=== PATIENT | female | born 1960 | race Caucasian/White ===

== ENCOUNTER 2016-07-02 23:39 | Inpatient (IN) | payer BC ==
--- NOTE | 2016-07-02 23:59 | ED ---
General Adult HPI - General Chief complaint: Chest Pain Stated complaint: CHest Pain/Jaw Pain/ Time Seen by Provider: 07/02/16 23:48 Source: patient, RN notes reviewed, old records reviewed Mode of arrival: wheelchair Limitations: no limitations - History of Present Illness Initial comments: This is a 56-year-old female here with chest pain, crushing anterior chest pain rating left jaw left arm, patient has a history of smoking no prior history of heart disease no high blood pressure [place] [facility] of diabetes. A third about 2 hours prior to arrival, patient tried to it bleeding without pizza that she ate tonight but the symptoms persisted with increasing shortness of breath. No fever cough or congestion no travel history. - Related Data Home Medications Medication Instructions Recorded Confirmed Aspirin 81 mg PO DAILY 07/02/16 07/02/16 Garlic 1 tab PO DAILY 07/02/16 07/02/16 Multivitamins, Thera [Multivitamin 1 tab PO DAILY 07/02/16 07/02/16 (formulary)] Allergies Allergy/AdvReac Type Severity Reaction Status Date / Time No Known Allergies Allergy Unverified 07/02/16 23:53 Review of Systems ROS Statement: Those systems with pertinent positive or pertinent negative responses have been documented in the HPI. ROS Other: All systems not noted in ROS Statement are negative. Past Medical History Past Medical History: No Reported History History of Any Multi-Drug Resistant Organisms: None Reported Past Surgical History: Hysterectomy, Tonsillectomy Past Psychological History: No Psychological Hx Reported Smoking Status: Current every day smoker Past Alcohol Use History: None Reported Past Drug Use History: None Reported General Exam Limitations: no limitations General appearance: alert, in no apparent distress, anxious Head exam: Present: atraumatic, normocephalic, normal inspection Eye exam: Present: normal appearance, PERRL, EOMI. Absent: scleral icterus, conjunctival injection, periorbital swelling ENT exam: Present: normal exam, mucous membranes moist Neck exam: Present: normal inspection. Absent: tenderness, meningismus, lymphadenopathy Respiratory exam: Present: normal lung sounds bilaterally. Absent: respiratory distress, wheezes, rales, rhonchi, stridor Cardiovascular Exam: Present: regular rate, normal rhythm, normal heart sounds. Absent: systolic murmur, diastolic murmur, rubs, gallop, clicks GI/Abdominal exam: Present: soft, normal bowel sounds. Absent: distended, tenderness, guarding, rebound, rigid Extremities exam: Present: normal inspection, full ROM, normal capillary refill. Absent: tenderness, pedal edema, joint swelling, calf tenderness Back exam: Present: normal inspection Neurological exam: Present: alert, oriented X3, CN II-XII intact Psychiatric exam: Present: normal affect, normal mood Skin exam: Present: warm, dry, intact, normal color. Absent: rash Course Vital Signs 07/02/16 23:52 Temperature 98.4 F Pulse Rate 78 Respiratory 22 Rate Blood Pressure 132/90 O2 Sat by Pulse 96 Oximetry EKG Findings - EKG Comments: EKG Findings:: EKG shows normal sinus rate of 66, ME 162, QRS 80, QTC 431. Repeat. EKG shows sinus rhythm rate of at 76, ME 160, QRS 80, QTC 454. Repeat. EKG shows normal sinus rhythm rate of 82, ME 176, QRS 80, QTC 462 Medical Decision Making - Lab Data Result diagrams: 07/03/16 00:20 Lab Results 07/03/16 07/03/16 Range/Units 00:20 00:20 WBC 9.9 (3.8-10.6) k/uL RBC 4.43 (3.80-5.40) m/uL Hgb 13.9 (11.4-16.0) gm/dL Hct 41.7 (34.0-46.0) % MCV 94.2 (80.0-100.0) fL MCH 31.4 (25.0-35.0) pg MCHC 33.4 (31.0-37.0) g/dL RDW 12.9 (11.5-15.5) % Plt Count 305 (150-450) k/uL Neutrophils % 60 % Lymphocytes % 27 % Monocytes % 7 % Eosinophils % 3 % Basophils % 1 % Neutrophils # 5.9 (1.3-7.7) k/uL Lymphocytes # 2.7 (1.0-4.8) k/uL Monocytes # 0.7 (0-1.0) k/uL Eosinophils # 0.3 (0-0.7) k/uL Basophils # 0.1 (0-0.2) k/uL PT 10.5 (9.0-12.0) sec INR 1.0 (<1.1) APTT 25.0 (22.0-30.0) sec D-Dimer 0.44 (<0.60) mg/L FEU Critical Care Time Critical Care Time: Yes Total Critical Care Time: 31 Disposition Clinical Impression: Chest pain Disposition: ADMITTED IP TO THIS HOSP Condition: Undetermined Referrals: Elza Ferguson DO [Primary Care Provider] - 1-2 days
[2016-07-03] MEDS ORDERED: ASPIRIN 81 MG CHEW PO STA ×2 (00:09→12:32)
[2016-07-03] MEDS ORDERED: HEPARIN SODIUM,PORCINE 5,000 UNIT/ML 1 ML VIAL IV ONE ×2 (00:09→09:21)
[2016-07-03] MEDS ORDERED: NITROGLYCERIN SL TABS 0.4 MG TAB SUBLINGUAL PRN ×2 (00:09→12:27)
[2016-07-03] MEDS ORDERED: HEPARIN SODIUM,PORCINE/D5W PMX 25,000 UNIT in DEXTROSE/WATER 1 500ML.BAG IV SCH ×2 (00:15→09:30)
[2016-07-03 00:39] LABS: Basophils # (A) 0.1 k/uL (0-0.2); Basophils % (A) 1 %; CH 31.9; Eosinophils # (A) 0.3 k/uL (0-0.7); Eosinophils % (A) 3 %; HCT 41.7 % (34.0-46.0); HDW 2.14; HGB 13.9 gm/dL (11.4-16.0); Luc # (Auto) 0.27; Luc % (Auto) 3; Lymphocytes # (A) 2.7 k/uL (1.0-4.8); Lymphocytes % (A) 27 %; MCH 31.4 pg (25.0-35.0); MCHC 33.4 g/dL (31.0-37.0); MCV 94.2 fL (80.0-100.0); Mean Platelet Volume 7.2; Monocytes # (A) 0.7 k/uL (0-1.0); Monocytes % (A) 7 %; Neutrophils # (A) 5.9 k/uL (1.3-7.7); Neutrophils % (A) 60 %; RBC 4.43 m/uL (3.80-5.40); RDW 12.9 % (11.5-15.5); WBC 9.9 k/uL (3.8-10.6); WBC (Perox) 9.95
[2016-07-03 00:54] LABS: ALT 50 U/L (9-52); AST 98 U/L (14-36); Alkaline Phosphatase 90 U/L (38-126); Anion Gap 12 mmol/L; Blood Urea Nitrogen 23 mg/dL (7-17); Carbon Dioxide 27 mmol/L (22-30); Chloride 104 mmol/L (98-107); Glucose 121 mg/dL (74-99); Non-African American GFR(MDRD) >60 (>60 ml/min/1.73 sqM); Potassium 3.9 mmol/L (3.5-5.1); Sodium 143 mmol/L (137-145); Total Bilirubin 0.3 mg/dL (0.2-1.3); Total Protein 6.9 g/dL (6.3-8.2)
[2016-07-03 00:55] LABS: Prothrombin Time 10.5 sec (9.0-12.0)
--- NOTE | 2016-07-03 01:06 | XR ---
EXAM: XR Chest, 2 Views. CLINICAL HISTORY: Reason: Chest Pain TECHNIQUE: Frontal and lateral views of the chest. COMPARISON: No relevant prior studies available. FINDINGS: The lungs are hyperexpanded with flattening of the diaphragm, consistent with emphysema. There is no consolidation or vascular congestion. No pleural effusion or pneumothorax. Mild apical pleural/parenchymal scarring. Thoracic spondylosis. IMPRESSION: Pulmonary hyperexpansion suggesting emphysema. No consolidation
[2016-07-03] MEDS: SODIUM CHLORIDE 0.9% 1,000 ML IV SCH ×2 (01:28→17:36)
[2016-07-03 01:30] LABS: Creatine Kinase MB 52.5 ng/mL (0.0-2.4); Troponin I 38.6 ng/mL (0.000-0.034)
--- NOTE | 2016-07-03 01:45 | ED ---
Medical Decision Making - Medical Decision Making 56 female deer with chest pain. [address] elevation, patient is without chest pain currently states it has subsided. Spoke with cardiology regarding this and severely elevated troponin, there aware, will admit for anticoagulation echocardiograph in the morning and continued telemetry - Lab Data Result diagrams: 07/03/16 00:20 07/03/16 00:20 - Radiology Data Radiology results: report reviewed, image reviewed Disposition Clinical Impression: Chest pain, NSTEMI (non-ST elevated myocardial infarction) Disposition: ADMITTED IP TO THIS HOSP Condition: Serious
[2016-07-03 02:19] LABS: Glucose,Whole Blood 126 mg/dL (75-99)
[2016-07-03 07:37] LABS: Mean Platelet Volume 6.6
[2016-07-03 08:34] LABS: Creatine Kinase MB 65.6 ng/mL (0.0-2.4)
[2016-07-03 08:35] LABS: Troponin I 34.2 ng/mL (0.000-0.034)
[2016-07-03] MEDS ORDERED: LORazepam 2 MG/ML SYRINGE IV STA (08:46)
[2016-07-03] MEDS: NICOTINE 21MG/24HR PATCH TRANSDERM SCH (09:20)
[2016-07-03] MEDS ORDERED: HEPARIN SODIUM,PORCINE 5,000 UNIT/ML 1 ML VIAL IV PRN (09:21)
--- NOTE | 2016-07-03 11:06 | ECHOF ---
Referral Reason:cp MEASUREMENTS -------- HEIGHT: 157.5 cm WEIGHT: 43.1 kg BP: 117/72 RVIDd: 1.9 cm (< 3.3) IVSd: 1.1 cm (0.6 - 1.1) LVIDd: 4.1 cm (3.9 - 5.3) LVPWd: 0.9 cm (0.6 - 1.1) IVSs: 1.2 cm LVIDs: 2.6 cm LVPWs: 1.1 cm LAESV Index (A-L): 20.31 ml/m Ao Diam: 3.1 cm (2.0 - 3.7) AV Cusp: 2.3 cm (1.5 - 2.6) MV EXCURSION: 16.399 mm (> 18.000) MV EF SLOPE: 109 mm/s (70 - 150) EPSS: 0.4 cm MV E Evangelist: 0.90 m/s MV DecT: 208 ms MV A Evangelist: 0.62 m/s MV E/A Ratio: 1.46 RAP: 5.00 mmHg RVSP: 35.64 mmHg FINDINGS -------- Sinus rhythm. This was a technically good study. The left ventricular size is normal. Left ventricular wall thickness is normal. Overall left ventricular systolic function is moderate-severely impaired with, an EF between 30 - 35 %. Apical anterior LV wall motion is akinetic. Apical lateral LV wall motion is akinetic. Apical inferior LV wall motion is akinetic. Apical septum LV wall motion is akinetic. The right ventricle is normal in size and function. Normal LA size by volume 22+/-6 ml/m2. The right atrium is normal in size. There is mild aortic valve sclerosis. Mild mitral annular calcification present. Mild mitral regurgitation is present. Mild tricuspid regurgitation present. There is mild pulmonary hypertension. The right ventricular systolic pressure, as measured by Doppler, is 35.64mmHg. The pulmonic valve was not well visualized. Trace/mild (physiologic) pulmonic regurgitation. The aortic root size is normal. The inferior vena cava is mildly dilated. There is no pericardial effusion. CONCLUSIONS -------- 1. Sinus rhythm. 2. There is mild aortic valve sclerosis. 3. Mild mitral annular calcification present. 4. Mild mitral regurgitation is present. 5. Mild tricuspid regurgitation present. 6. There is mild pulmonary hypertension. 7. The pulmonic valve was not well visualized. 8. The aortic root size is normal. 9. The inferior vena cava is mildly dilated. 10. There is no pericardial effusion. 11. This was a technically good study. 12. Left ventricular wall thickness is normal. 13. Overall left ventricular systolic function is moderate-severely impaired with, an EF between 30 - 35 %. 14. Apical anterior LV wall motion is akinetic. 15. Apical lateral LV wall motion is akinetic. 16. Apical inferior LV wall motion is akinetic. 17. Apical septum LV wall motion is akinetic. 18. Normal LA size by volume 22+/-6 ml/m2. BLOOD BANK ATTENDANT: Sara Morejon RDCS
[2016-07-03] MEDS ORDERED: ATORVASTATIN 80 MG TAB PO STA ×2 (12:26→12:27)
[2016-07-03] MEDS ORDERED: SODIUM CHLORIDE 0.9% 1,000 ML in EMPTY BAG 1 BAG IV ONE (12:27)
[2016-07-03] MEDS ORDERED: ASPIRIN 325 MG TAB PO STA (12:27)
[2016-07-03] MEDS ORDERED: ALPRAZolam 0.25 MG TAB PO PRN (12:27)
[2016-07-03] MEDS ORDERED: LIDOCAINE 2% INJ 20 MG/ML (20 ML MDV) ONE (12:46)
[2016-07-03 12:54] LABS: Troponin I 21.6 ng/mL (0.000-0.034)
[2016-07-03] MEDS ORDERED: fentaNYL (PF) 50 MCG/ML 2 ML AMP ONE (13:12)
--- NOTE | 2016-07-03 13:12 | P.HPIM ---
History of Present Illness H&P Date: 07/03/16 Chief Complaint: Chest pain 56-year-old female is admitted to the hospital with the complaints of chest pain that started over 24 hours prior to admission. Patient states that the pain is midsternal location and has radiated to her left arm and to her left jaw. The hospital with a for ongoing evaluation. Patient stated that she was actually at rest while the pain started got concerned in regards to cardiogenic type of pain and came to the hospital. Patient apparently had another type of pain epigastric in location and did talk to her primary care doctor in the past as it has been going on for a long period of time it was recommended for a upper endoscopy. Patient smokes about a pack of cigarettes daily for the last 35 years. States her her exercise tolerance is very minimal nature of breath with the less than a block. Currently denies having any cough, fevers, chills, nausea, vomiting. Patient does state to have intermittent episodes of cold sweats and associates that with her menopausal symptoms. Patient was noted to have an elevated troponin. The EKG showed the some diffuse ST changes. Patient is symptom-free during the time of my evaluation. Patient was started on heparin and triaged to the intensive care unit. Review of Systems All systems: negative (Noted in HPI) Past Medical History Past Medical History: No Reported History History of Any Multi-Drug Resistant Organisms: None Reported Past Surgical History: Adenoidectomy, Hysterectomy, Tonsillectomy Past Anesthesia/Blood Transfusion Reactions: No Reported Reaction Past Psychological History: No Psychological Hx Reported Smoking Status: Current every day smoker Past Alcohol Use History: None Reported Past Drug Use History: None Reported - Past Family History Mother Family Medical History: CVA/TIA, Hypertension, Myocardial Infarction (ID) Additional Family Medical History / Comment(s): carotids. multiple family hx of cardiac disease Medications and Allergies Home Medications Medication Instructions Recorded Confirmed Type Aspirin 81 mg PO DAILY 07/02/16 07/02/16 History Garlic 1 tab PO DAILY 07/02/16 07/02/16 History Multivitamins, Thera [Multivitamin 1 tab PO DAILY 07/02/16 07/02/16 History (formulary)] Allergies Allergy/AdvReac Type Severity Reaction Status Date / Time No Known Allergies Allergy Unverified 07/02/16 23:53 Physical Exam Vitals: Vital Signs Temp Pulse Pulse Resp BP BP Pulse Ox 07/03/16 12:00 98.2 F 95 21 105/56 96 07/03/16 11:55 23 07/03/16 11:40 95 29 H 105/56 94 L 07/03/16 11:20 86 28 H 105/56 95 07/03/16 11:00 87 11 L 105/56 95 07/03/16 10:40 98.1 F 84 23 105/56 94 L 07/03/16 10:20 90 25 H 94 L 07/03/16 10:00 88 24 95 07/03/16 09:40 102 H 31 H 94 L 07/03/16 09:20 82 37 H 117/72 97 07/03/16 09:00 90 18 98 07/03/16 08:00 78 41 H 117/72 98 07/03/16 07:00 98.3 F 85 28 H 117/72 97 07/03/16 06:00 87 28 H 121/72 94 L 07/03/16 05:00 91 24 121/72 97 07/03/16 04:00 98.7 F 84 18 106/50 94 L 07/03/16 03:00 96 18 97/70 98 07/03/16 02:16 91 16 94 L 07/03/16 01:45 98.8 F 96 16 97/70 95 07/03/16 01:35 98.5 F 91 18 125/71 97 Intake and Output 07/02/16 07/03/16 07/03/16 22:59 06:59 14:59 Intake Total 300 80.997 Output Total 500 400 Balance -200 -319.003 Intake: Amount of Fluid Infused ( 100 ml) Intake, IV Titration 80 80.997 Amount Heparin Sodium,Porcine/ 80.997 D5w Pmx 25,000 unit In Dextrose/Water 1 500ml. bag @ 12 UNITS/KG/HR 10. 34 mls/hr IV .Q24H [facility] Rx #:[id number] Sodium Chloride 0.9% 1, 80 000 ml @ 20 mls/hr IV . Q24H [facility] Rx#:[id number] Oral 120 Output: Urine 500 400 Other: Voiding Method Bedside Commode Bedside Commode # Voids 1 1 Weight 48.9 kg 48.9 kg Patient Weight 07/04/16 06:59 Weight 48.9 kg Physical exam Gen. appearance oriented 3 in no distress Neck is supple no JVD Lungs diminished breath sounds no rhonchi or wheezing appreciated Heart S1-S2 heard regular rate and rhythm no murmurs appreciated Abdomen is soft nontender no organomegaly bowel sounds are intact Neurologically cranial nerves II-12 grossly intact no focal motor or sensory deficits noted Skin no abnormalities appreciated Results CBC & Chem 7: 07/03/16 06:38 07/03/16 00:20 Labs: Abnormal Lab Results - Last 24 Hours (Table) 07/03/16 07/03/16 07/03/16 Range/Units 00:20 00:20 02:14 BUN 23 H (7-17) mg/dL Glucose 121 H (74-99) mg/dL POC Glucose (mg/dL) 126 H (75-99) mg/dL AST 98 H (14-36) U/L Total Creatine Kinase 801 H (30-135) U/L CK-MB (CK-2) 52.5 H* (0.0-2.4) ng/mL Troponin I 38.600 H* (0.000-0.034) ng/mL 07/03/16 07/03/16 Range/Units 06:38 11:30 BUN (7-17) mg/dL Glucose (74-99) mg/dL POC Glucose (mg/dL) (75-99) mg/dL AST (14-36) U/L Total Creatine Kinase 1277 H 1103 H (30-135) U/L CK-MB (CK-2) 65.6 H* 44.0 H* (0.0-2.4) ng/mL Troponin I 34.200 H* 21.600 H* (0.000-0.034) ng/mL Thrombosis Risk Factor Assmnt - Choose All That Apply Any of the Below Risk Factors Present?: Yes Each Factor Represents 1 point: Age 41-60 years Other Risk Factors: No Other congenital or acquired thrombophilia - If yes, enter type in comment: No Thrombosis Risk Factor Assessment Total Risk Factor Score: 1 Thrombosis Risk Factor Assessment Level: Low Risk Assessment and Plan Plan: #1 non-ST elevation myocardial infarction #2 COPD #3 history of chronic abdominal pain #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 He is been consulted. Await recommendations. We'll start the patient on the breathing treatments when necessary. Patient would benefit from outpatient PFTs. She is noted to have a barrel chest are ready and is silent on examination Further workup in regards to cachexia will be beneficial after PFTs and recommendations for supplemental protein intake
[2016-07-03] MEDS ORDERED: fentaNYL (PF) 50 MCG/ML 2 ML AMP IV ONE (13:14)
[2016-07-03] MEDS ORDERED: LIDOCAINE 2% INJ 20 MG/ML SQ ONE (13:18)
--- NOTE | 2016-07-03 13:28 | CONS ---
DATE OF CONSULTATION: 07/03/2016 56-year-old female Patient admitted to the hospital with recurrent chest pains for the last couple of days more so yesterday. The patient came to the hospital with chest pains but the patient has been apparently not doing very for a long time and has not been going to the primary care physician. The patient is a smoker on a regular basis and complaining of precordial chest pain and jaw pain. Left arm pain. Patient has been on: 1. Aspirin. 2. Garlic pills. 3. Multivitamins. Patient has not been feeling well for a long time. No history of any major alcohol abuses. REVIEW OF SYSTEMS: Essentially unremarkable. Patient has a past surgical history of Hysterectomy, tonsillectomy. Patient's echocardiogram showing severely impaired LV function with ejection fraction of 30 to 35% with multiple ( ) inferior, anterior, hypokinesis and patient's EKGs are consistent with myopericarditis, type of picture and poor R wave progression in anteroseptal leads. Patient appears much older than her stated age. Review of systems otherwise unremarkable. Patient apparently had no insurance and stopped follows with her primary care physician. Physical examination revealed a 56-year-old who appears much older than her stated age with a pulse rate of 87 beats per minute and regular, blood pressure 105/56, respirations 20. Head normocephalic unremarkable. Neck is supple. No thyroid enlargement. No bruit noted. Good carotid upstroke bilaterally. Chest is symmetrical. CARDIAC EXAMINATION: Regular rate and rhythm. S1 and S2. S4 gallop is noted, short systolic murmur at the apex. LUNGS: Clinically to auscultation and percussion. ABDOMEN: Soft, no organomegaly. EXTREMITIES: Decreased pedal pulses. No pedal edema. [employer] SERVICES MA[employer]GER examination: Grossly within normal limits. EKG revealed ST elevations on initial ( ) precardial, inferior and anterior leads and later on poor R wave progression noted in anteroseptal leads. Troponin leaks up to 34 and 38. The echocardiogram showed wall motion abnormalities and multiple segmental wall motion, ejection fraction of 38%. ASSESSMENT: 1. Non-Q-wave myocardial infarction. Suspect triple-vessel disease or myopericarditis. 2. Long-standing history of smoking. 3. Generalized poor health and very fair lady, appears older than her stated age. RECOMMENDATIONS: Proceed with cardiac catheterization to assess severity of coronary artery disease and need for interventions. Patient was informed all the risks and benefits of the procedure. Understood and accepted.
[2016-07-03] MEDS ORDERED: IOHEXOL 350 MG/ML 100 ML BOTTLE INTRATHECA ONE (13:32)
[2016-07-03] MEDS ORDERED: IV FLUID CONTINUATION 1,000 ML IV ONE (13:33)
[2016-07-03] MEDS ORDERED: RX INFO: IV CONTRAST WAS GIVEN 1 EACH MISC MISCELLANE PRN (13:48)
[2016-07-03] MEDS: CARVEDILOL 3.125 MG TAB PO SCH (17:35)
--- NOTE | 2016-07-03 21:33 | CC ---
DATE OF SERVICE: Patient came into the hospital with a prolonged episode of chest pain and extensive ST-elevation changes in anterolateral and inferolateral leads and troponin leaks up to 34 and 38. Patient is a smoker; only risk factor is smoker. No other risk factors. I do not know about the lipid panels. Patient was advised cardiac catheterization to rule out the possibility of myopericarditis versus a triple-vessel disease because the LV function was impaired with extensive segmental wall motion abnormalities in all regions. Patient was informed of the risks and benefits of the procedure, understood and accepted. PROCEDURE: Under local anesthesia, right femoral artery was cannulated using Seldinger technique. Placed a [address]. Procedure of selective coronary arteriogram and left ventriculogram followed by common femoral angiogram and Angio-Seal. Patient received conscious sedation, stayed under sedation for about 30 minutes total. Patient tolerated the procedure very well. HEMODYNAMIC DATA: Aortic pressure noted to be 107/75 with a mean pressure of 91. Left ventricular end-diastolic pressure following coronary arteriography noted to be 20 mmHg. There was no gradient across the aortic valve. LEFT VENTRICULOGRAPHY: Left ventriculography was done in 30-degree ANDRES and revealed a ( ) normal cardiac silhouette ( ) noted to have a large entire ventricle is ballooning out except for a small segment of anterobasal small segment, posterior segment showing the normal wall motion. Entire ventricle is ballooning out with a ( ) ejection fraction of around 25% without any mitral regurgitation. Ascending and descending aorta appeared normal. Consistent with takotsubo syndrome. SELECTIVE CORONARY ARTERIOGRAPHY: Left main coronary artery is of normal caliber, free of any atherosclerotic occlusive disease. Left anterior descending is a good-caliber blood vessel, free of any atherosclerotic occlusion. Mild calcification noted in the proximal segment without any significant atherosclerotic occlusive lesions. Wraps around the apex. Left circumflex is a non-dominant, small-caliber blood vessel, free of any atherosclerotic occlusive disease. Right coronary artery is a dominant excellent-caliber blood vessel, free of any atherosclerotic occlusive disease throughout its course. A common femoral angiogram was done following the procedure. Patient tolerated the procedure very well. Patient will be continued on appropriate treatment for takotsubo syndrome.
[2016-07-03] MEDS: MORPHINE SULFATE 4 MG/ML SYRINGE IV PRN (21:53)
[2016-07-04] MEDS: SODIUM CHLORIDE 0.9% 1,000 ML IV SCH ×3 (04:33→17:01)
[2016-07-04 06:21] LABS: Basophils # (A) 0.1 k/uL (0-0.2); Basophils % (A) 1 %; CH 31.5; CHCM 33.1; Eosinophils # (A) 0.2 k/uL (0-0.7); Eosinophils % (A) 2 %; HCT 41.1 % (34.0-46.0); HDW 1.98; HGB 13.7 gm/dL (11.4-16.0); Luc % (Auto) 2; Lymphocytes # (A) 2.4 k/uL (1.0-4.8); Lymphocytes % (A) 19 %; MCH 31.9 pg (25.0-35.0); MCHC 33.3 g/dL (31.0-37.0); MCV 95.7 fL (80.0-100.0); Mean Platelet Volume 6.5; Monocytes # (A) 0.8 k/uL (0-1.0); Monocytes % (A) 6 %; Neutrophils % (A) 72 %; RDW 12.7 % (11.5-15.5); WBC 12.5 k/uL (3.8-10.6)
[2016-07-04 06:33] LABS: ALT 44 U/L (9-52); AST 100 U/L (14-36); Alkaline Phosphatase 60 U/L (38-126); Anion Gap 8 mmol/L; Blood Urea Nitrogen 15 mg/dL (7-17); Calcium 9.1 mg/dL (8.4-10.2); Carbon Dioxide 27 mmol/L (22-30); Chloride 106 mmol/L (98-107); Cholesterol 160 mg/dL (<200); Glucose 101 mg/dL (74-99); HDL Cholesterol 64 mg/dL (40-60); Magnesium 1.8 mg/dL (1.6-2.3); Non-African American GFR(MDRD) >60 (>60 ml/min/1.73 sqM); Potassium 4.1 mmol/L (3.5-5.1); Sodium 141 mmol/L (137-145); Total Bilirubin 0.9 mg/dL (0.2-1.3); Total Protein 6.5 g/dL (6.3-8.2); Triglycerides 120 mg/dL (<150)
[2016-07-04] MEDS: CARVEDILOL 3.125 MG TAB PO SCH ×2 (08:26→17:01)
[2016-07-04] MEDS: NICOTINE 21MG/24HR PATCH TRANSDERM SCH (08:26)
[2016-07-04] MEDS ORDERED: ASPIRIN 325 MG TAB PO SCH (09:00)
[2016-07-04] MEDS: ALPRAZolam 0.5 MG TAB PO PRN ×2 (09:23→20:55)
[2016-07-04 11:06] VITALS: BMI 16.9
[2016-07-04] MEDS: LISINOPRIL 2.5 MG TAB PO SCH (11:26)
[2016-07-04] MEDS: SPIRONOLACTONE 25 MG TAB PO SCH (11:26)
--- NOTE | 2016-07-04 14:22 | P.PN ---
Subjective 56-year-old female is admitted to the hospital with the complaints of chest pain that started over 24 hours prior to admission. Patient states that the pain is midsternal location and has radiated to her left arm and to her left jaw. The hospital with a for ongoing evaluation. Patient stated that she was actually at rest while the pain started got concerned in regards to cardiogenic type of pain and came to the hospital. Patient apparently had another type of pain epigastric in location and did talk to her primary care doctor in the past as it has been going on for a long period of time it was recommended for a upper endoscopy. Patient smokes about a pack of cigarettes daily for the last 35 years. States her her exercise tolerance is very minimal nature of breath with the less than a block. Currently denies having any cough, fevers, chills, nausea, vomiting. Patient does state to have intermittent episodes of cold sweats and associates that with her menopausal symptoms. Patient was noted to have an elevated troponin. The EKG showed the some diffuse ST changes. Patient is symptom-free during the time of my evaluation. Patient was started on heparin and triaged to the intensive care unit. 07/04/2016 Patient underwent a cardiac catheterization was noted to have apical ballooning consistent with stress induced cardiomyopathy. There was no significant disease in the coronary arteries. Objective - Vital Signs Vital signs: Vital Signs Temp 97.7 F 07/04/16 11:26 Pulse 89 07/04/16 11:26 Resp 16 07/04/16 11:26 BP 97/60 07/04/16 11:26 Pulse Ox 95 07/04/16 11:26 Intake & Output 07/03/16 07/04/16 07/04/16 18:59 06:59 18:59 Intake Total 205.997 0 200 Output Total 600 200 Balance -394.003 0 0 Weight 48.9 kg 42.1 kg 42.1 kg Intake: IV 125 0 Sodium Chloride 0.9% 1, 75 0 000 ml @ 75 mls/hr IV . [id number] [facility] Rx#:[id number] Intake, IV Titration 80.997 Amount Heparin Sodium,Porcine/ 80.997 D5w Pmx 25,000 unit In Dextrose/Water 1 500ml. bag @ 12 UNITS/KG/HR 10. 34 mls/hr IV .Q24H [facility] Rx #:[id number] Oral 200 Output: Urine 600 200 Other: Voiding Method Bedside Commode Bedside Commode # Voids 1 1 1 - Exam Physical exam Gen. appearance oriented 3 in no distress Neck is supple no JVD Lungs good air entry clear to auscultation no rhonchi or wheezing Heart S1-S2 heard regular rate and rhythm no murmurs appreciated Abdomen is soft nontender no organomegaly bowel sounds are intact Neurologically cranial nerves II-12 grossly intact no focal motor or sensory deficits noted Skin no abnormalities appreciated - Labs CBC & Chem 7: 07/04/16 06:10 07/04/16 06:10 Labs: Abnormal Lab Results - Last 24 Hours (Table) 07/04/16 07/04/16 Range/Units 06:10 06:10 WBC 12.5 H (3.8-10.6) k/uL Neutrophils # 9.0 H (1.3-7.7) k/uL Glucose 101 H (74-99) mg/dL AST 100 H (14-36) U/L HDL Cholesterol 64 H (40-60) mg/dL Assessment and Plan Plan: #1 non-ST elevation myocardial infarction #2 COPD #3 history of chronic abdominal pain #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 Plan Continue current medications. Patient's blood pressure is borderline. However is asymptomatic. We'll monitor another 24 hours prior to discharge. Will need an outpatient pulmonology evaluation as well. Encourage ambulation.
--- NOTE | 2016-07-04 14:27 | P.PN ---
Subjective Principal diagnosis: Chest pain This is a 56-year-old female with no significant past medical history , history of nicotine dependence. She presented to the hospital with symptoms of chest discomfort. According to the patient she had been experiencing chest pain for several days prior to admission. Initial troponin, 38.6, subsequent troponin 34.2 and 21.6. Patient was taken to the cardiac catheterization lab where she was not found to have any significant obstructive coronary artery disease. Left ventriculography revealed apical ballooning syndrome with an ejection fraction of approximately 25%. Patient is currently on aspirin 81 mg daily, Lipitor 80 mg daily, Coreg 3.25 mg by mouth twice a day, lisinopril 2.5 mg daily, nicotine patch, and Aldactone 25 mg daily. The pressure this morning 101/60, heart rate in the 90s, 99% on room air. Patient denies any chest pain, her breathing overall has been stable. Echocardiogram with Doppler study was performed which revealed moderately severe impairment with an ejection fraction of 30-35%, apical anterior, lateral, and inferior and septal wall akinetic. Patient was thoroughly educated regarding stress cardiomyopathy in the importance of being on medications to strengthen the heart muscle. Objective - Vital Signs Vital signs: Vital Signs Temp 97.7 F 07/04/16 11:26 Pulse 89 07/04/16 11:26 Resp 16 07/04/16 11:26 BP 97/60 07/04/16 11:26 Pulse Ox 95 07/04/16 11:26 Intake & Output 07/03/16 07/04/16 07/04/16 18:59 06:59 18:59 Intake Total 205.997 0 200 Output Total 600 200 Balance -394.003 0 0 Weight 48.9 kg 42.1 kg 42.1 kg Intake: IV 125 0 Sodium Chloride 0.9% 1, 75 0 000 ml @ 75 mls/hr IV . [id number] MADDY Rx#:[id number] Intake, IV Titration 80.997 Amount Heparin Sodium,Porcine/ 80.997 D5w Pmx 25,000 unit In Dextrose/Water 1 500ml. bag @ 12 UNITS/KG/HR 10. 34 mls/hr IV .Q24H MADDY Rx #:[id number] Oral 200 Output: Urine 600 200 Other: Voiding Method Bedside Commode Bedside Commode # Voids 1 1 1 - Exam PHYSICAL EXAMINATION: HEENT: Head is atraumatic, normocephalic. Pupils equal, round. Neck is supple. There is no elevated jugular venous pressure. HEART EXAMINATION: Heart S1, S2 normal. No murmur or gallop heard. CHEST EXAMINATION: Lungs are clear to auscultation and precussion. No chest wall tenderness is noted on palpation or with deep breathing. ABDOMEN: Soft, nontender. Bowel sounds are heard. No organomegaly noted. Right groin soft, no evidence of any hematoma. EXTREMITIES: 2+ peripheral pulses with no evidence of peripheral edema and no calf tenderness noted. NEUROLOGIC patient is awake, alert and oriented -3. . - Labs CBC & Chem 7: 07/04/16 06:10 07/04/16 06:10 Labs: Abnormal Lab Results - Last 24 Hours (Table) 07/04/16 07/04/16 Range/Units 06:10 06:10 WBC 12.5 H (3.8-10.6) k/uL Neutrophils # 9.0 H (1.3-7.7) k/uL Glucose 101 H (74-99) mg/dL AST 100 H (14-36) U/L HDL Cholesterol 64 H (40-60) mg/dL Assessment and Plan (1) S/P cardiac cath Status: Acute (2) Stress-induced cardiomyopathy Status: Acute (3) Nicotine dependence Status: Acute (4) Chest pain Status: Acute Plan: From cardiology's perspective, we will recommend to continue the patient on the current medications as above mentioned. Continue to monitor blood pressure closely. If blood pressure and heart rate remained stable, and patient has been up ambulating in the [place]. Plan for possible discharge home in 24-48 hours if stable. Repeat echocardiogram with Doppler study will be performed in approximately 6 weeks as an outpatient. DNP note has been reviewed, I agree with a documented findings and plan of care. Patient was seen and examined.
[2016-07-04 17:13] LABS: Glucose,Whole Blood 103 mg/dL (75-99)
[2016-07-04 20:43] LABS: Glucose,Whole Blood 86 mg/dL (75-99)
[2016-07-04] MEDS: MORPHINE SULFATE 4 MG/ML SYRINGE IV PRN (23:54)
[2016-07-05] MEDS: SODIUM CHLORIDE 0.9% 1,000 ML IV SCH ×2 (00:34→05:28)
[2016-07-05] MEDS: CARVEDILOL 3.125 MG TAB PO SCH (06:13)
[2016-07-05 06:36] LABS: Basophils # (A) 0.1 k/uL (0-0.2); Basophils % (A) 2 %; CH 31.4; CHCM 33.1; Eosinophils # (A) 0.4 k/uL (0-0.7); Eosinophils % (A) 5 %; HCT 39.1 % (34.0-46.0); HDW 2.08; HGB 13.2 gm/dL (11.4-16.0); Luc # (Auto) 0.28; Luc % (Auto) 4; Lymphocytes # (A) 2.5 k/uL (1.0-4.8); Lymphocytes % (A) 31 %; MCHC 33.7 g/dL (31.0-37.0); Mean Platelet Volume 7.6; Monocytes # (A) 0.7 k/uL (0-1.0); Monocytes % (A) 8 %; Neutrophils % (A) 51 %; RBC 4.12 m/uL (3.80-5.40); RDW 12.4 % (11.5-15.5); WBC 7.9 k/uL (3.8-10.6); WBC (Perox) 8.82
[2016-07-05 06:54] LABS: ALT 45 U/L (9-52); AST 61 U/L (14-36); Alkaline Phosphatase 57 U/L (38-126); Anion Gap 8 mmol/L; Blood Urea Nitrogen 17 mg/dL (7-17); Calcium 9.2 mg/dL (8.4-10.2); Carbon Dioxide 29 mmol/L (22-30); Chloride 102 mmol/L (98-107); Glucose 89 mg/dL (74-99); Magnesium 1.9 mg/dL (1.6-2.3); Non-African American GFR(MDRD) >60 (>60 ml/min/1.73 sqM); Potassium 3.8 mmol/L (3.5-5.1); Sodium 139 mmol/L (137-145); Total Bilirubin 0.7 mg/dL (0.2-1.3); Total Protein 6.2 g/dL (6.3-8.2)
[2016-07-05] MEDS: LISINOPRIL 2.5 MG TAB PO SCH (08:06)
[2016-07-05] MEDS: SPIRONOLACTONE 25 MG TAB PO SCH (08:06)
[2016-07-05] MEDS: NICOTINE 21MG/24HR PATCH TRANSDERM SCH (08:06)
[2016-07-05 08:10] VITALS: TEMP 97.4
[2016-07-05] MEDS: ALPRAZolam 0.5 MG TAB PO PRN (08:18)
[2016-07-05] MEDS ORDERED: ACETAMINOPHEN TAB 325 MG TAB PO PRN (08:18)
[2016-07-05] MEDS ORDERED: ASPIRIN 81 MG CHEW PO SCH (09:00)
--- NOTE | 2016-07-05 10:44 | P.PN ---
Subjective Principal diagnosis: Chest pain This is a 56-year-old female with no significant past medical history , history of nicotine dependence. She presented to the hospital with symptoms of chest discomfort. According to the patient she had been experiencing chest pain for several days prior to admission. Initial troponin, 38.6, subsequent troponin 34.2 and 21.6. Patient was taken to the cardiac catheterization lab where she was not found to have any significant obstructive coronary artery disease. Left ventriculography revealed apical ballooning syndrome with an ejection fraction of approximately 25%. Patient is currently on aspirin 81 mg daily, Lipitor 80 mg daily, Coreg 3.25 mg by mouth twice a day, lisinopril 2.5 mg daily, nicotine patch, and Aldactone 25 mg daily. The pressure this morning 100/60, heart rate in the 70s, 99% on room air. Patient denies any chest pain, her breathing overall has been stable. Echocardiogram with Doppler study was performed which revealed moderately severe impairment with an ejection fraction of 30-35%, apical anterior, lateral, and inferior and septal wall akinetic. Patient was thoroughly educated regarding stress cardiomyopathy in the importance of being on medications to strengthen the heart muscle. Valvular hematoma through the night last night requiring the nurse to hold pressure, this morning her groin was examined, soft, no bruit, no hematoma. Objective - Vital Signs Vital signs: Vital Signs Temp 97.4 F L 07/05/16 08:00 Pulse 70 07/05/16 08:00 Resp 18 07/05/16 08:00 BP 100/60 07/05/16 08:00 Pulse Ox 99 07/05/16 08:00 Intake & Output 07/04/16 07/05/16 07/05/16 18:59 06:59 18:59 Intake Total 200 180 Output Total 400 Balance -200 180 Weight 42.1 kg 41.7 kg Intake: Oral 200 180 Output: Urine 400 Other: Voiding Method Bedside Commode Bedside Commode Bedside Commode # Voids 1 2 0 - Exam PHYSICAL EXAMINATION: HEENT: Head is atraumatic, normocephalic. Pupils equal, round. Neck is supple. There is no elevated jugular venous pressure. HEART EXAMINATION: Heart S1, S2 normal. No murmur or gallop heard. CHEST EXAMINATION: Lungs are clear to auscultation and precussion. No chest wall tenderness is noted on palpation or with deep breathing. ABDOMEN: Soft, nontender. Bowel sounds are heard. No organomegaly noted. Right groin soft, no evidence of any hematoma., No bruit. EXTREMITIES: 2+ peripheral pulses with no evidence of peripheral edema and no calf tenderness noted. NEUROLOGIC patient is awake, alert and oriented -3. . - Labs CBC & Chem 7: 07/05/16 06:07 07/05/16 06:07 Labs: Abnormal Lab Results - Last 24 Hours (Table) 07/04/16 07/05/16 Range/Units 17:06 06:07 POC Glucose (mg/dL) 103 H (75-99) mg/dL AST 61 H (14-36) U/L Total Protein 6.2 L (6.3-8.2) g/dL Assessment and Plan (1) S/P cardiac cath Status: Acute (2) Stress-induced cardiomyopathy Status: Acute (3) Nicotine dependence Status: Acute (4) Chest pain Status: Acute Plan: From cardiology's perspective, we will recommend to continue the patient on the current medications as above mentioned. She may be able to be discharged home today from cardiology's perspective. Patient will be discharged home on aspirin 81 mg daily, Coreg 3.125 mg twice a day, lisinopril 2.5 mg daily, nicotine patch, Aldactone 25 mg one tablet by mouth daily. She has been provided prescriptions for all of the above medications and she has been educated regarding them as well. Follow-up appointment will be made with Dr. Douglass POST discharge. DNP note has been reviewed, I agree with a documented findings and plan of care. Patient was seen and examined.
[2016-07-05 11:17] VITALS: BP 104/64; PULSE 66; RESP 17
--- NOTE | 2016-07-05 17:16 | P.DS ---
Providers Date of admission: 07/03/16 00:12 Attending physician: Justo Gutierrez Primary care physician: Elza Ferguson Hospital Course: 56-year-old female is admitted to the hospital with the complaints of chest pain that started over 24 hours prior to admission. Patient states that the pain is midsternal location and has radiated to her left arm and to her left jaw. The hospital with a for ongoing evaluation. Patient stated that she was actually at rest while the pain started got concerned in regards to cardiogenic type of pain and came to the hospital. Patient apparently had another type of pain epigastric in location and did talk to her primary care doctor in the past as it has been going on for a long period of time it was recommended for a upper endoscopy. Patient smokes about a pack of cigarettes daily for the last 35 years. States her her exercise tolerance is very minimal nature of breath with the less than a block. Currently denies having any cough, fevers, chills, nausea, vomiting. Patient does state to have intermittent episodes of cold sweats and associates that with her menopausal symptoms. Patient was noted to have an elevated troponin. The EKG showed the some diffuse ST changes. Patient is symptom-free during the time of my evaluation. Patient was started on heparin and triaged to the intensive care unit. 07/04/2016 Patient underwent a cardiac catheterization was noted to have apical ballooning consistent with stress induced cardiomyopathy. There was no significant disease in the coronary arteries. 07/05/2016 States to be doing well. Patient apparently has some concern for bleeding or night in her right groin. However it has stabilized. States to have some pain or in her right groin. - Exam Physical exam Gen. appearance oriented 3 in no distress Neck is supple no JVD Lungs good air entry clear to auscultation no rhonchi or wheezing Heart S1-S2 heard regular rate and rhythm no murmurs appreciated Abdomen is soft nontender no organomegaly bowel sounds are intact Neurologically cranial nerves II-12 grossly intact no focal motor or sensory deficits noted Skin no abnormalities appreciated Right groin. No hematoma appreciated. Palpable femoral pulse. 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 We'll defer to the primary care physician in regards to referral to pulmonology. Patient has excessive worrying may benefit from an SSRI. Her condition was discussed in detail with the patient and her family. Discharged home in a stable condition. Recommended smoking cessation. Patient Condition at Discharge: Serious Plan - Discharge Summary New Discharge Prescriptions: Carvedilol [Coreg] 3.125 mg PO BID-W/MEALS #60 tab Lisinopril [Zestril] 2.5 mg PO DAILY #30 tab Nicotine 21Mg/24Hr Patch [Habitrol] 1 patch TRANSDERM DAILY #30 patch Spironolactone [Aldactone] 25 mg PO DAILY #30 tab Discharge Medication List Aspirin 81 mg PO DAILY 07/02/16 [History] Garlic 1 tab PO DAILY 07/02/16 [History] Multivitamins, Thera [Multivitamin (formulary)] 1 tab PO DAILY 07/02/16 [History ] Carvedilol [Coreg] 3.125 mg PO BID-W/MEALS #60 tab 07/05/16 [Rx] Lisinopril [Zestril] 2.5 mg PO DAILY #30 tab 07/05/16 [Rx] Nicotine 21Mg/24Hr Patch [Habitrol] 1 patch TRANSDERM DAILY #30 patch 07/05/16 [ Rx] Spironolactone [Aldactone] 25 mg PO DAILY #30 tab 07/05/16 [Rx] Follow up Appointment(s)/Referral(s): Elza Ferguson DO [Primary Care Provider] - 1-2 days Mike San MD [STAFF PHYSICIAN] - 07/13/16 9:45 am Patient Instructions/Handouts: Myocardial Infarction (DC) Discharge Disposition: HOME SELF-CARE
== END 2016-07-05 13:14 | disposition home or self-care (01) | DRG 281 ==
LOC: EC 23:39 → 3OBS 07-03 00:12 → OBSVTOIN 07-03 00:12 → 6ICU 07-03 01:43 → 6SEL 07-03 19:48
PROVIDERS: ADMIT Hospitalist; ATTEND Hospitalist
PROC: B2151ZZ Fluoroscopy of Left Heart using Low Osmolar Contrast (ICD-10-PCS; principal; 2016-07-03 12:35)
PROC: B2111ZZ Fluoroscopy of Multiple Coronary Arteries using Low Osmolar Contrast (ICD-10-PCS; principal; 2016-07-03 12:35)
DX: I21.4 Non-ST elevation (NSTEMI) myocardial infarction (principal); R64 Cachexia; I51.81 Takotsubo syndrome; J44.9 Chronic obstructive pulmonary disease, unspecified; F17.210 Nicotine dependence, cigarettes, uncomplicated; G89.29 Other chronic pain; R10.9 Unspecified abdominal pain; M95.4 Acquired deformity of chest and rib; Z79.82 Long term (current) use of aspirin; Z79.899 Other long term (current) drug therapy; Z82.49 Family history of ischemic heart disease and other diseases of the circulatory system
CPT/HCPCS: 36415; 71020; 80053; 80061; 82550; 82553; 83690; 83735; 84484; 85025; 85049; 85379; 85610; 85730; 93005; 93306; 93458; 94760; 96365; 96376; 99291